=== PATIENT | male | born 1995 | race Two or more races ===

== ENCOUNTER 2017-03-08 17:24 | Emergency (ER) | payer OTHER ==
--- NOTE | 2017-03-08 17:39 | PDOC ---
History of Present Illness - General History Source: Patient Exam Limitations: No Limitations - History of Present Illness Initial Comments: 03/08/17 17:40 The patient is a 21 year old male with past medical history of appendectomy who presents to the ED s/p left ankle injury that occurred yesterday. The patient states that he was running into a pool, slipped, and fell, twisting his left ankle. The patient complains of localized pain to his ankle without any numbness or tingling. He is able to apply some pressure to the ankle and is walking with a limp. The patient reports putting Beng[place] cream on the injury and denies taking any medicines for the pain. He denies any fevers, chills, N/V/D, cough, SOB, or CP. <Nickie Serrano - Last Filed: 03/08/17 17:40> - General History Source: Patient, Old Records Exam Limitations: No Limitations <Kandi Garcia - Last Filed: 03/08/17 18:55> - General Chief Complaint: Injury Stated Complaint: LEFT ANKLE/FOOT INJURY Time Seen by Provider: 03/08/17 17:35 Past History <MaggieNickie - Last Filed: 03/08/17 17:40> - Surgical History Appendectomy: Yes - Psycho/Social/Smoking Cessation Hx Anxiety: No Suicidal Ideation: No Smoking History: Never smoked Information on smoking cessation initiated: No Hx Alcohol Use: No Drug/Substance Use Hx: No <Kandi Garcia - Last Filed: 03/08/17 18:55> - Past Medical History Allergies/Adverse Reactions: Allergies Allergy/AdvReac Type Severity Reaction Status Date / Time No Known Allergies Allergy Verified 03/08/17 17:26 Home Medications: Ambulatory Orders NK [No Known Home Medication] 03/08/17 Review of Systems - Review of Systems Able to Perform ROS?: Yes Comments:: 03/08/17 17:40 GENERAL/CONSTITUTIONAL: No fever or chills. No weakness. HEAD, EYES, EARS, NOSE AND THROAT: No change in vision. No ear pain or discharge. No sore throat. CARDIOVASCULAR: No chest pain or shortness of breath. RESPIRATORY: No cough, wheezing, or hemoptysis. GASTROINTESTINAL: No nausea, vomiting, diarrhea or constipation. GENITOURINARY: No dysuria, frequency, or change in urination. MUSCULOSKELETAL: Present: left ankle pain No neck or back pain. SKIN: No rash NEUROLOGIC: No headache, vertigo, loss of consciousness, or change in strength/ sensation. ENDOCRINE: No increased thirst. No abnormal weight change. HEMATOLOGIC/LYMPHATIC: No anemia, easy bleeding, or history of blood clots. ALLERGIC/IMMUNOLOGIC: No hives or skin allergy. All Other Systems: Reviewed and Negative <Nickie Serrano - Last Filed: 03/08/17 17:40> *Physical Exam - Vital Signs Last Vital Signs Temp Pulse Resp BP Pulse Ox 98 F 83 18 122/75 98 03/08/17 17:25 03/08/17 17:25 03/08/17 17:25 03/08/17 17:25 03/08/17 17:25 - Physical Exam Comments: 03/08/17 17:41 GENERAL: Awake, alert, and fully oriented, in no acute distress HEAD: No signs of trauma EYES: PERRLA, EOMI, sclera anicteric, conjunctiva clear ENT: Auricles normal inspection, hearing grossly normal, nares patent, oropharynx clear without exudates. Moist mucosa NECK: Normal ROM, supple, no lymphadenopathy, JVD, or masses LUNGS: Breath sounds equal, clear to auscultation bilaterally. No wheezes, and no crackles HEART: Regular rate and rhythm, normal S1 and S2, no murmurs, rubs or gallops ABDOMEN: Soft, nontender, normoactive bowel sounds. No guarding, no rebound. No masses EXTREMITIES: Left Ankle: Swelling around malleolar region and dorsum, tenderness to palpation , full ROM Normal range of motion, no edema. No clubbing or cyanosis. No cords, erythema. NEUROLOGICAL: Cranial nerves II through XII grossly intact. Normal speech, normal gait SKIN: Warm, Dry, normal turgor, no rashes or lesions noted. <Nickie Serrano - Last Filed: 03/08/17 17:40> - Vital Signs Last Vital Signs Temp Pulse Resp BP Pulse Ox 98 F 83 18 122/75 98 03/08/17 17:25 03/08/17 17:25 03/08/17 17:25 03/08/17 17:25 03/08/17 17:25 <Kandi Garcia - Last Filed: 03/08/17 18:55> Medical Decision Making - Medical Decision Making 03/08/17 17:36 21 y/o male with no significant PMHx presents to the ED with c/o left ankle pain since yesterday following a slip and fall. DDx includes but is not limited to: ankle sprain, fracture, contusion. Plan: 1. Plain film of the left foot and ankle. 2. Pain management--patient declines pain meds at this time 3. Observe and re-evaluate 4. If plain film is negative will discharge home with cielo wrap, NSAIDs for pain , weight bear as tolerated and f/u with PCP as needed. 03/08/17 18:55 Addendum: plain films of the foot and ankle are negative. <Kandi Garcia - Last Filed: 03/08/17 18:55> *DC/Admit/Observation/Transfer - Attestations Scribe Attestion: 03/08/17 17:42 Documentation prepared by Nickie Serrano, acting as medical service technician for Kandi Garcia MD. <Nickie Serrano - Last Filed: 03/08/17 17:40> - Discharge Dispostion Admit: No - Attestations Physician Attestion: 03/08/17 17:39 I, Dr. Kandi Garcia, attest that the scribes documentation that appears above has been prepared under my direction and personally reviewed by me in its entirety. I confirmed that the note above accurately reflects all work, treatment, procedures, and medical decision-making performed by me. <Kandi Garcia - Last Filed: 03/08/17 18:55> Diagnosis at time of Disposition: Left ankle sprain - Discharge Dispostion Disposition: HOME Condition at time of disposition: Stable - Patient Instructions Printed Discharge Instructions: DI for Ankle Sprain Additional Instructions: Place ice to the swollen areas. You may take ibuprofen 600-800mg every 6-8 hours as needed for pain. Weight bear as tolerated. Follow-up with your PCP as needed. Return to the ED if your symptoms persist, worsen or new symptoms arise.
[2017-03-08 17:50] VITALS: BP 122/75; PULSE 83; TEMP 98; BMI 33.0
== END 2017-03-08 19:05 | disposition home or self-care (01) ==
LOC: FER 17:24
DX: S93.402A Sprain of unspecified ligament of left ankle, initial encounter (principal); X58.XXXA Exposure to other specified factors, initial encounter; Y93.11 Activity, swimming; Y92.34 Swimming pool (public) as the place of occurrence of the external cause
CPT/HCPCS: 73610-TC-LT; 73630-TC-LT; 99282-25